=== PATIENT | female | born 1995 | race Caucasian/White ===

== ENCOUNTER → 2017-01-20 | Day surgery (SDC) | payer OTHER ==
[~2017-01-20] VITALS: Ht 177.8 cm; Wt 59.0 kg
[~2017-01-20] MED LIST: Dexamethasone Inj PF*Surgery use* 10 MG/ML VIAL IV ONE; ORTHO TRI-CYCL1 EAC1 PO
[2017-01-20 09:21] VITALS: BP 115/75
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
--- NOTE | 2017-01-20 09:37 | Pre-Procedure Note/Attestation ---
Pre-Procedure Note/Attestation Complete Prior to Procedure Planned Procedure: bilateral Procedure Narrative: L4-L5 transforaminal lumbar epidural steroid injections under fluoroscopic guidance. Indications for Procedure Pre-Operative Diagnosis: Lumbar disc displacement with radiculopathy Attestation I attest that I discussed the nature of the procedure; its benefits; risks and complications; and alternatives (and the risks and benefits of such alternatives ), prior to the procedure, with the patient (or the patient's legal jewelry sales representative). I attest that, if there was a reasonable possibility of needing a blood transfusion, the patient (or the patient's legal jewelry sales representative) was given the [place] [employer] [facility] standardized written summary, pursuant to the [place] Blood Safety Act ([place] Health and Safety Code # 1645, as amended). I attest that I re-evaluated the patient just prior to the surgery and that there has been no change in the patient's H&P, except as documented below: YINKA MCCAIN M.D. Jan 20, 2017 09:37
--- NOTE | 2017-01-20 10:06 | Brief Operative Note ---
Immediate Post Operative Note Operative Note Chief Complaint: Lower back pain with bilateral leg pain Pre-op Diagnosis: Lumbar disc displacement with radiculopathy Procedure: Bilateral L4-L5 transforaminal lumbar epidural steroid injection under fluoroscopic guidance. Post-op Diagnosis: Same as preop Post-op Diagnosis: same as pre-op Findings: consistent w/pre-op dx studies Surgeon: Yinka Villa MD Etcher Electrolytic: none Additional Surgeons: none Anesthesiologist: none Anesthesia: local Specimen: none Complications: none Condition: stable Fluids: none Estimated Blood Loss: none Drains: none Packing: none Tourniquet time: 0 - min Implant(s) used?: YINKA Mayers M.D. Jan 20, 2017 10:06
--- NOTE | 2017-01-20 10:08 | Discharge Summary ---
Discharge Summary Hospital Course Date of Admission 01/20/2017 Date of Discharge 01/20/2017 Admitting Diagnosis Lumbar disc displacement with radiculopathy Reason for Hospitalization: short stay HPI Lelo Owens is a 21 year old female who was admitted on for Lumbar Disc Displacement Consultations none Procedures Bilateral L4-L5 transforaminal lumbar epidural steroid injection under fluoroscopic guidance. Hospital Course short stay Discharge Condition Upon Discharge: stable Discharge Disposition Patient was discharged to home. Discharge Diagnoses: (1) Lumbar disc herniation with radiculopathy Discharge Instructions Discharge Instructions Follow up with: Dr. Yinka Mccain Diet: regular Activity: okay to shower For Surgical Patients Contact your physician for: bleeding, pain, tenderness, redness, swelling, yellowish discharge in the op. site YINKA MCCAIN M.D. Jan 20, 2017 10:08
[2017-01-20 10:09] VITALS: BP 142/82
[2017-01-20 10:33] VITALS: BP 129/89
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
== END | disposition home or self-care (01) ==
LOC: SUR 08:57
DX: M51.16 Intervertebral disc disorders with radiculopathy, lumbar region (principal); Z88.4 Allergy status to anesthetic agent; Z88.5 Allergy status to narcotic agent; Z88.7 Allergy status to serum and vaccine
CPT/HCPCS: 64483; 64484; 81025; Q9967